=== PATIENT | male | born 1995 | race Caucasian/White ===

== ENCOUNTER 2017-11-09 01:21 | Emergency (ER) | payer BC ==
[2017-11-09] MEDS ORDERED: Azithromycin 250 MG TAB ONE (02:08)
[2017-11-09] MEDS ORDERED: cefTRIAXone\\ROCEPHIN 250 MG VIAL ONE ×2 (02:08→02:19)
[2017-11-09] MEDS ORDERED: Lidocaine 1% PF 5 ML VIAL ONE (02:19)
[2017-11-09 03:07] LABS: Bilirubin Negative (Negative); Blood, Urine Negative (Negative); Clarity CLEAR (Clear); Glucose, Urine (Dipstick) Negative (Negative); Leukocyte Small (Negative); Nitrite Negative (Negative); Protein, Urine (Dipstick) Negative (Neg-Trace); Specific Gravity, Urine 1.016 (1.002-1.036); Urobilinogen 0.2 mg/dL (0.2-1.0); pH, Urine 5.5 (5.0-9.0)
[2017-11-09 03:09] LABS: Bacteria/HPF None Seen HPF (None Seen); Hyaline Casts/LPF 0-3 HYALINE CAST LPF (0-3 Hyaline); RBC/HPF None Seen HPF (0-3); Squamous Epithelial None Seen HPF (0-3)
[2017-11-11 09:52] LABS: Chlamydia by PCR DETECTED (NotDetected); GC by PCR Not Detected (NotDetected)
== END 2017-11-09 02:50 | disposition home or self-care (01) ==
LOC: ERS 01:21
DX: Z11.3 Encounter for screening for infections with a predominantly sexual mode of transmission (principal); F17.210 Nicotine dependence, cigarettes, uncomplicated
CPT/HCPCS: 81003; 81015; 87086; 87491; 87591; 96372; J0696; J2001